=== PATIENT | female | born 1970 | race Two or more races ===

== ENCOUNTER 2020-02-02 15:34 | Emergency (ER) | payer OTHER ==
[~2020-02-02] VITALS: Ht 165.1 cm; Wt 96.2 kg
[2020-02-02 19:45] VITALS: BP 160/80
== END 2020-02-02 20:34 | disposition home or self-care (01) ==
LOC: EDBD 15:34 → ER 15:34
DX: R10.9 Unspecified abdominal pain (principal); R07.89 Other chest pain; E11.9 Type 2 diabetes mellitus without complications; I10 Essential (primary) hypertension; V49.9XXA Car occupant (driver) (passenger) injured in unspecified traffic accident, initial encounter; Y93.89 Activity, other specified; Y92.89 Other specified places as the place of occurrence of the external cause; Y99.8 Other external cause status